=== PATIENT | female | born 1985 | race Caucasian/White ===

== ENCOUNTER 2019-01-31 11:36 | Emergency (ER) | payer OTHER ==
[~2019-01-31] VITALS: Ht 170.2 cm; Wt 77.1 kg
[2019-01-31 11:52] VITALS: BP_SYST 129
--- NOTE | 2019-01-31 14:05 | NUR ---
Patient to ER [place] to [facility] for evaluation. Side rails up. Report given to [facility].
--- NOTE | 2019-01-31 14:06 | NUR ---
Beckie BAGGAGEMAN at bedside examining patient.
[2019-01-31 14:30] VITALS: BP_SYST 126
--- NOTE | 2019-01-31 15:03 | NUR ---
Patient given written and verbal discharge instructions and verbalizes understanding. ER MD discussed with patient the results and treatment provided. Patient in stable condition. ID arm band removed. Rx of Azithromycin, Promethazine VC, Motrin, albuterol given. Patient educated on pain management and to follow up with PMD. Pain Scale 0/10. Opportunity for questions provided and answered. Medication side effect fact sheet provided.
== END 2019-01-31 14:30 | disposition home or self-care (01) ==
LOC: SED 11:36
DX: J20.9 Acute bronchitis, unspecified (principal); R03.0 Elevated blood-pressure reading, without diagnosis of hypertension; Z98.51 Tubal ligation status; Z88.6 Allergy status to analgesic agent; Z88.8 Allergy status to other drugs, medicaments and biological substances
CPT/HCPCS: 71046-TC; 99283